=== PATIENT | male | born 1975 | race Caucasian/White ===

== ENCOUNTER → 2021-04-28 10:01 | Outpatient (CLI) | payer OTHER, SELFPAY ==
--- NOTE | ~2021-04-28 | US_ITS ---
EXAMINATION: US scrotum doppler DATE: 04/28/2021 10:48 INDICATION: Testicular lump TECHNIQUE: Testicular sonogram utilizing grayscale and Doppler COMPARISON: None. FINDINGS: The right testis measures 4.6 x 2.5 x 3.3 cm. The left testis measures 4.3 x 2.6 x 3.0 cm. Symmetric normal grayscale appearance to both testes. There is approximately 1 mm hyperechoic likely shadowing testicular microlith at the posterior left testis. There is normal vascular flow to both testes. Ther e are couple small shadowing calcifications within an 8 x 4 x 3 mm epididymal appendix arising from t he right epididymal head. The right epididymis is otherwise normal with normal vascular flow. The lef t epididymis is normal with normal vascular flow. Small bilateral hydroceles. Mild right varicocele w ith mildly dilated vessels measuring up to 3 mm diameter. IMPRESSION: 1. Palpable abnormality of concern corresponds to a small right epididymal appendix. 2. Small bilateral hydroceles. 3. Mild left varicocele. Reviewed, dictated and finalized at location A. IMPRESSION: 1. Palpable abnormality of concern corresponds to a small right epididymal hellen endix. 2. Small bilateral hydroceles. 3. Mild left varicocele.
== END ==
PROVIDERS: Visit Provider Nurse Practitioner
DX: N50.89 Other specified disorders of the male genital organs (principal); N43.3 Hydrocele, unspecified; I86.1 Scrotal varices
CPT/HCPCS: 76870; 93976

== ENCOUNTER 2021-06-20 07:42 | Outpatient (RCR) | payer OTHER, SELFPAY ==
[2021-06-20 07:42] VITALS: BP 131/85; PULSE 94; RESP 20; TEMP 36.5; O2SAT 98
[2021-06-20] MEDS: FAMOTIDINE 20 MG TABLET PO (07:45)
[2021-06-20] MEDS: ACETAMINOPHEN 325 MG TABLET 650 MG PO (07:45)
[2021-06-20] MEDS: diphenhydrAMINE HCl CAP 25 MG CAPSULE PO (07:45)
[2021-06-20 09:09] VITALS: BP 124/74
--- NOTE | 2021-06-23 08:38 | PC.NURSE ---
Tried calling Mr Covington had to leave a message for him to return my call.
--- NOTE | 2021-06-23 08:44 | PC.NURSE ---
Mr Covington called back and stated he is feeling much better and has no questions at this time.
== END 2021-06-20 17:00 ==
LOC: AMCINF 07:42
PROVIDERS: PCP Family Medicine; Visit Provider Internal Medicine Hematology & Oncology
DX: U07.1 COVID-19 (principal); I10 Essential (primary) hypertension
CPT/HCPCS: A9270; M0245; Q0245

== ENCOUNTER 2022-03-30 11:06 | Outpatient (CLI) | payer OTHER, SELFPAY ==
--- NOTE | 2022-03-30 11:26 | ECG_ITS ---
Measurements Intervals [place] Rate: 54 P: 34 WA: 165 QRS: 37 QRSD: 92 T: 40 QT: 396 QTc: 376 Interpretive Statements SINUS BRADYCARDIA INCOMPLETE RIGHT BUNDLE BRANCH BLOCK BORDERLINE ECG NO PREVIOUS ECG AVAILABLE FOR COMPARISON Electronically Signed On 03-30-2022 13:53:25 CDT by Yosi Heller D.O.
== END 2022-03-30 11:07 | disposition home or self-care (01) ==
LOC: ANHIMG 11:15 → ANHCARD 11:46
PROVIDERS: PCP Family Medicine; Visit Provider Physician Assistant Medical
DX: R00.2 Palpitations (principal); R00.1 Bradycardia, unspecified; I45.10 Unspecified right bundle-branch block
CPT/HCPCS: 93005

== ENCOUNTER → 2022-09-04 10:53 | Outpatient (CLI) | payer OTHER, SELFPAY ==
--- NOTE | ~2022-09-04 | US_ITS ---
US scrotum doppler INDICATION: Right epididymal cysts. TECHNIQUE: Testicular sonogram utilizing grayscale and color Doppler FINDINGS: The testes are normal in size and appearance. No focal lesions are seen. The right testes measures 4.4 x 2.2 x 3.5 cm centimeters, and the left testis measures 2.9 x 2.2 x 3 cm cm. There is n ormal vascular flow to both testes. The right and left epididymides appear normal. There is no varicocele or hydrocele. IMPRESSION: 1. NORMAL TESTICULAR ULTRASOUND. Reviewed, dictated and finalized at location B. T MIXER
== END ==
PROVIDERS: PCP Family Medicine; Visit Provider Nurse Practitioner
DX: N50.3 Cyst of epididymis (principal)
CPT/HCPCS: 76870; 93976

== ENCOUNTER 2022-10-19 08:04 | Outpatient (CLI) | payer OTHER, SELFPAY | END 2022-10-19 08:05 | disposition home or self-care (01) | LOC: ANHSURGERY 08:08 | PROVIDERS: PCP Physician Assistant; Visit Provider Surgery | DX: Z01.812 Encounter for preprocedural laboratory examination (principal); K42.9 Umbilical hernia without obstruction or gangrene; K40.90 Unilateral inguinal hernia, without obstruction or gangrene, not specified as recurrent | CPT/HCPCS: 36415; 86850; 86900; 86901 ==

== ENCOUNTER 2022-10-20 00:37 | Day surgery (SDC) | payer OTHER, SELFPAY ==
[2022-10-13 13:39] VITALS: BMI 22.4
--- NOTE | 2022-10-13 13:48 | PC.NURSE ---
Addendum entered by Nova Westfall RN 10/13/22 14:05: Shower with Hibiclens (Chlorhexidine Gluconate 4%) morning of surgery. Original Note: Report to the Outpatient Waiting Room, entrance under the green pavilion located off [facility], at 0600 on 10/20/22 . Planned Procedure Time: 0730. Time changes happen often and if your time is changed the preop area will call you the afternoon before. - You and your visitor will be asked to self-screen and do not enter if you have any COVID symptoms. - Only one visitor is requested with a max of two and NO children visitors are allowed at this time. - The patient visitor may be requested to leave or wait in car when not with patient due to distancing restrictions. - A mask is optional within the hospital at this time. Patients may have clear liquids (water, carbonated beverages, clear teas, apple juice) until 3 hours prior to surgery with a maximum of 20 ounces. - No food from midnight until time of surgery. Take the following medications with a SIP of water the morning of surgery: AMLODIPINE DO NOT STOP ANY OF YOUR OTHER PRESCRIPTION MEDICATIONS PRIOR TO SURGERY ?EXCEPT THE FOLLOWING Medications to discontinue per physician N/A Date to take last dose N/A Please no make-up, nail north korean, hairspray, perfume, deodorant, or body powder the day of surgery. No jewelry (including any body piercings) or valuables the day of surgery, leave them at home. Please take a shower or bath the night before, or the morning of, surgery with an antibacterial soap. Wear comfortable, loose fitting clothing. - Jewelry must be removed prior to entering the operating room. Rings and piercings that are not removed may be cut off. - The hospital will not accept responsibility for valuables. - Please leave all valuables, including medications, at home the day of surgery. If you are going home after surgery, a licensed tow car driver must drive you home. - NO public transportation without another adult if you receive anesthesia. - We recommend that an adult stay with you for 24 hours following discharge. - We also recommend that you do not drive, make important decision, drink alcoholic beverages, or take any drugs that were not prescribed by your health care provider for at least 24 hours after your discharge time. Follow any additional instructions given to you from your surgeon. If you or anyone in your household have experienced Covid symptoms in the past week, please notify your surgeon or the nurse liaison at the phone number below for possible testing. Telephone instructions given to patient and asked if any additional questions and then verbalized understanding. Patient advised to call surgeon office or pre surgery nurse liaison [phone] if any additional questions.
[2022-10-20] VITALS (9 sets, daily range): BP systolic 116–133; BP diastolic 68–92; PULSE 69–87; RESP 10–16; TEMP 36.2–36.4; O2SAT 98–100
[2022-10-20] MEDS: ACETAMINOPHEN 500 MG TABLET 1000 MG PO (06:27)
[2022-10-20] MEDS: LACTATED RINGERS 1,000 ML 30 ML IV CONT ×2 (06:40→08:35)
[2022-10-20] MEDS: KETOROLAC 15 MG/ML VIAL (*BKC) IV PUSH (07:02)
--- NOTE | 2022-10-20 07:03 | WPDANESEPPF ---
Anes - Initial Pre Proc Eval Procedure: Operation Date: 10/20/22 07:30 Proposed Procedures p Laparoscopic Right Inguinal Hernia with Mesh, Davinci Assisted - Tex Ca DO s Open Umbilical Hernia Repair - Tex Ca DO Date/Time: 10/20/22 07:03 Surgeon: Tex Ca DO Pre Op Diagnosis: Rt Ing Hernia, umbilical hernia Patient Data Age: 47 Gender: M Height: 1.88 m Weight: 78.3 kg Last Vital Signs Temp 36.4 C L 10/20/22 06:43 Pulse 78 10/20/22 06:43 Resp 16 10/20/22 06:43 BP 133/92 H 10/20/22 06:43 Pulse Ox 100 10/20/22 06:43 O2 Del Method Room Air 10/20/22 06:43 Allergies Allergy/AdvReac Type Severity Reaction Status Date / Time No Known Allergies Allergy Verified 10/13/22 13:38 Home Medications Medication Instructions Recorded Confirmed Type amlodipine 10 mg tablet See Rx Instructions .Route 04/09/22 10/20/22 Rx .COMPLEX #90 tabs lisinopril 10 mg tablet 10 mg PO DAILY #90 tabs 07/19/22 10/20/22 Rx Patient hx anesthesia problems: none Family hx anesthesia problems: none Results Review: All pre-operative results and documents have been reviewed as part of the pre-operative evaluation. [facility] Past Medical History Medical History Hypertension Surgical History Surgical History H/O hernia repair Left inguinal hernia repair Family History Family History Mother Cancer Unknown Heart disease Other Cerebrovascular accident Hypertension Social History Social History Smoking status: Former smoker Second hand tobacco smoke exposure: No Additional smoking assessment comments: late teens, early 20s-none since Alcohol intake: current Drinks per week: 5 Alcohol use details: beers Substance use: never Substance use type: does not use Lack of Transportation: No Lack of Food: Never True Current Housing: I Have Housing Concerned About Future Housing: No Difficulty Paying Gas/Electric Bills: No Difficulty Paying for Meds: No Currently Unemployed: No Education: Bachelor's Degree Difficulty w/ Childcare or Family Care: No Living arrangements: with family Spiritual care concerns: No Anes - Eval Final PreProcedure Day of Procedure 10/20/22 07:03 Patient weight: normal Heart: regular rate and rhythm Lungs: clear to auscultation Airway: Mallampati scale class II Neurological: alert and oriented Last oral intake: >/= 8 hours ASA classification: II Emergent: no Anesthetic plan: proceed Anesthesia type and monitoring: general ETT and standard monitoring Results Review: All pre-operative results and documents have been reviewed as part of the pre-operative evaluation. Informed Consent: The patient's anesthetic plan and its attendant risks and benefits were discussed with the patient/family/POA. Questions were solicited and answers provided to the satisfaction of the patient/family/POA.
--- NOTE | 2022-10-20 07:14 | WPDHPUPDATE1 ---
History and Physical Update Update Date/Time: 10/20/22 07:14 History and Physical has been reviewed, including an updated exam of the patient. There are NO changes in the patient's condition. Risks, benefits, and alternatives have been discussed and questions answered. Patient agrees to proceed with procedure.
--- NOTE | 2022-10-20 07:14 | PM.IMHP ---
H&P: HPI History of Present Illness Date/Time: 10/20/22 07:14 Chief Complaint: right inguinal hernia, umbilical hernia Narrative: 47 yo man presents for RIH repair and umbilical hernia repair. He denies any changes since last seen in office. Review of Systems Review of Systems: All systems reviewed & are unremarkable except as noted in HPI and below Constitutional: Constitutional: Denies chills, Denies fever(s), Denies headache(s) and Denies weight loss Eyes: Eyes: Denies change in vision ENT: Denies dizziness, Denies headache(s), Denies neck mass and Denies throat swelling Cardiovascular: Cardiovascular: Denies chest pain, Denies lightheadedness and Denies dyspnea Respiratory: Respiratory: Denies cough, Denies dyspnea and Denies wheezing Gastrointestinal: Gastrointestinal: Denies abdominal pain, Denies change in bowel habits, Denies nausea and Denies vomiting Genitourinary: Genitourinary: Denies hematuria and Denies dysuria Musculoskeletal: Musculoskeletal: Reports as per HPI Integumentary/Breasts: Skin/Breast: Reports as per HPI Neurologic: Denies dizziness and Denies headache(s) Allergic/Immunologic: Allergic/Immunologic: Denies throat swelling and Denies wheezing PMFSH Past Medical History Medical History Hypertension Surgical History Surgical History H/O hernia repair Left inguinal hernia repair Family History Family History Mother Cancer Unknown Heart disease Other Cerebrovascular accident Hypertension Social History Social History Smoking status: Former smoker Second hand tobacco smoke exposure: No Additional smoking assessment comments: late teens, early 20s-none since Alcohol intake: current Drinks per week: 5 Alcohol use details: beers Substance use: never Substance use type: does not use Lack of Transportation: No Lack of Food: Never True Current Housing: I Have Housing Concerned About Future Housing: No Difficulty Paying Gas/Electric Bills: No Difficulty Paying for Meds: No Currently Unemployed: No Education: Bachelor's Degree Difficulty w/ Childcare or Family Care: No Living arrangements: with family Spiritual care concerns: No Meds Home Medications and Allergies Home Medications Medication Instructions Recorded Confirmed Type amlodipine 10 mg tablet See Rx Instructions .Route 04/09/22 10/20/22 Rx .COMPLEX #90 tabs lisinopril 10 mg tablet 10 mg PO DAILY #90 tabs 07/19/22 10/20/22 Rx Allergies Allergy/AdvReac Type Severity Reaction Status Date / Time No Known Allergies Allergy Verified 10/13/22 13:38 Vital Signs Vital Signs - 24 hr 10/20/22 06:43 Temperature 36.4 C L Pulse Rate 78 Respiratory Rate 16 Blood Pressure 133/92 H Pulse Oximetry 100 Oxygen Delivery Room Air Exam Const: General: no acute distress and alert Orientation/consciousness: patient oriented x3 HENMT: Head: normocephalic and atraumatic Ears: hearing grossly normal bilaterally Face/Nose/Sinus: Normal nares present Mouth: Yes Normal oral and palatal mucosa present Eyes: Periorbital: periorbital findings normal Sclera: sclerae normal EOM: EOMs intact bilaterally Neck: Neck: normal visual inspection, no lymphadenopathy and trachea midline Chest: Chest palpation & inspection: normal inspection of the chest Resp: Effort & Inspection: normal respiratory effort Auscultation: clear to auscultation bilaterally Cardio: Jugular venous distension: no JVD Rate: regular rate Rhythm: regular rhythm Heart sounds: S1 normal heart sound present and S2 normal heart sound present Peripheral pulses: Peripheral pulses 2+ throughout GI: Inspection: normal to inspection GI Palp: Yes Soft to palpation, No Tenderness to palpation
[2022-10-20] MEDS: ceFAZolin 2 GM/D5W 50 ML 2 GM/50 ML BAG IVPB (07:23)
[2022-10-20] MEDS: BUPIVACAINE/EPINEPHRINE 0.5% 50 ML VIAL 30 ML INFILTRATE (07:58)
--- NOTE | 2022-10-20 08:36 | W.PM.PROC2 ---
Procedure Note - Detailed Date of Procedure 10/20/22 Pre-op Diagnosis Rt Ing Hernia, umbilical hernia Post-op Diagnosis Same (1cm Umbilical hernia) Procedure Performed 1. Laparoscopic right inguinal hernia repair with mesh, da Bruce assisted 2. 1cm Umbilical hernia repair Surgeon Tex Ca DO Anesthesia General and Local (0.5% bupivacaine with epinephrine) Indications This is a 47-year-old man who presents for right inguinal hernia repair and umbilical hernia repair. He was experiencing some right groin pain a couple months ago after coughing a lot. On exam he was found to have a reducible right inguinal hernia and a small umbilical hernia. His umbilical hernia was overall asymptomatic. Discussions were made with the patient about treatment options and decision was made to proceed with robotic assisted laparoscopic right inguinal hernia repair with mesh and open umbilical hernia repair. Findings Laparoscopic right inguinal hernia repair was performed. The patient was found to have a small direct inguinal hernia. A robotic transabdominal preperitoneal approach was utilized for repair. Once a wide enough preperitoneal pocket was created and the hernia sac was reduced, I then placed a large right Bard 3DMax mid mesh. The mesh was placed overlying the entire right myopectineal orifice. No specimens were obtained for pathology. At the conclusion of the laparoscopic repair, I then extended the umbilical incision and repaired the umbilical hernia with 0 Ethibond [id number] sutures. Description of Procedure Procedure as well as risks, benefits, and alternatives were discussed with the patient. Written consent was obtained and placed in chart prior to procedure. Patient was brought back to surgical suite. He was placed supine on operating table. Time-out was done to confirm patient and procedure. He was then intubated by Anesthesia Department. His abdomen was prepped and draped in sterile fashion using chlorhexidine prep. 0.5% bupivacaine with epinephrine was infiltrated at each location for incision. A 12 millimeter transverse incision was made just superior to the umbilicus using a 15 blade scalpel. Blunt dissection was carried out down to the linea alba. A vertical incision was made at the linea alba using a 15 blade scalpel. The peritoneum was then bluntly entered. A 12 millimeter trocar was inserted and carbon dioxide insufflation was used to create a pneumoperitoneum. A camera was inserted and the abdominal cavity was inspected. The patient was placed in slight Trendelenburg position. An 8 millimeter incision was made on the right lateral abdomen and an 8 millimeter trocar was inserted under direct visualization. Another 8 millimeter incision was made in the left lateral abdomen and an 8 millimeter trocar was inserted under direct visualization. The robotic arms were brought up to the patient's bedside and secured to the ports. The camera and instruments were inserted. I then moved over to the robotic console and took control of the camera and instruments. After careful inspection of the abdominal cavity, I began scoring the peritoneum along the right lower quadrant using scissors with electrocautery. The preperitoneal plane was entered and this was carefully dissected caudally along the inferior epigastric vessels. Careful dissection with scissors with electrocautery and blunt dissection was used to continue this dissection. I dissected far enough laterally to allow for mesh placement, and also dissected medially to identify the pubic arch and Sidney's ligament. The hernia sac was identified and carefully dissected posteriorly. The cord contents were also identified and the peritoneum was carefully dissected far enough posteriorly to allow for mesh placement. Once an adequate pocket was created, I then placed the mesh within the preperitoneal pocket and carefully unfolded it. The mesh was centered on the hernia defect with adequ
--- NOTE | 2022-10-20 09:04 | SUR.PHASEI ---
0903: Simple mask removed.
[2022-10-20] MEDS: fentaNYL CITRATE INJ (*CRX) 100 MCG/2 ML VIAL 25 MCG IV PUSH ×2 (09:16→09:19)
[2022-10-20] MEDS: oxyCODONE HCL (*CRX) 5 MG TAB IR PO (10:02)
== END 2022-10-20 11:12 | disposition home or self-care (01) ==
PROVIDERS: PCP Physician Assistant; Visit Provider Surgery
PROC: 8E0Y4CZ Robotic Assisted Procedure of Lower Extremity, Percutaneous Endoscopic Approach (ICD-10-PCS; CPT 49650; principal; 2022-10-20 07:30)
PROC: (CPT 49650; 2022-10-20 07:30)
DX: K40.90 Unilateral inguinal hernia, without obstruction or gangrene, not specified as recurrent (principal); K42.9 Umbilical hernia without obstruction or gangrene; I10 Essential (primary) hypertension
CPT/HCPCS: 49650; S2900; 36415; 86850; 86900; 86901; A9270; C1781; J0690; J1885; J2250; J2405; J2704; J3010; J7120

== ENCOUNTER → 2022-11-24 09:55 | Outpatient (CLI) | payer OTHER, SELFPAY ==
--- NOTE | ~2022-11-24 | CT_ITS ---
Corrected Report See Bolded Text Request for correction to Clinical Indication from PT 11/25/2022 Mona This report was recreated on 11/25/2022. Original report was signed by Cyrus Rodriguez M.D. on 11/24/2022 10:51 CDT. Non-contrast CT scan of the Abdomen and Pelvis Clinical indication: Right testicular pain Technique: 2.5 mm axial scans were obtained through the abdomen and pelvis without intravenous or oral contrast. Dose reduction technique was used on this scan by utilizing automated exposure control and iterative reconstruction technique. The dose-length product (DLP) was 647.62 mGy-cm. Findings: Images through the lung bases reveal no abnormalities. There is no evidence of renal or ureteral calculi. The kidneys and the ureters are nondilated. The liver, spleen, pancreas, gallbladder, and adrenals appear normal. There is no aortic aneurysm. There is no evidence of bowel obstruction. Images through the pelvis were performed. There is no evidence of ascites or lymphadenopathy. Urinary bladder unremarkable. Prostate gland and seminal vesicles are unremarkable. Evidence of probable prior left inguinal herniorrhaphy. Impression: No acute abnormality seen. Probable prior left inguinal herniorrhaphy. Correlate with surgical history. No hernia seen currently. Reviewed, dictated and finalized at location . MTDD Impression: No acute abnormality seen. Probable prior left inguinal herniorrhaphy. Correlate with surgical history. No hernia seen currently.
== END ==
PROVIDERS: PCP Urology; Visit Provider Urology
DX: N50.811 Right testicular pain (principal); N50.812 Left testicular pain
CPT/HCPCS: 74176

== ENCOUNTER 2023-12-08 08:52 | Outpatient (NON) | payer OTHER, SELFPAY | END 2023-12-08 08:53 | disposition home or self-care (01) | LOC: ANHLAB 12-09 08:55 | PROVIDERS: PCP Family Medicine; Visit Provider Internal Medicine Gastroenterology | DX: Z12.11 Encounter for screening for malignant neoplasm of colon (principal); D12.3 Benign neoplasm of transverse colon; K63.5 Polyp of colon | CPT/HCPCS: 88305 ==

== ENCOUNTER 2023-12-08 09:06 | Day surgery (SDC) | payer OTHER, SELFPAY ==
[2023-11-22 10:33] VITALS: BMI 23.0
[2023-11-22 14:35] VITALS: BMI 22.6
--- NOTE | 2023-12-07 14:04 | P.PNAN_ITS ---
Anes - Initial Pre Proc Eval Procedure: Operation Date: 12/08/23 11:30 Proposed Procedures p Screening Colonoscopy - Rg Fleming MD Date/Time: 12/07/23 14:04 Surgeon: Rg Fleming MD Pre Op Diagnosis: Neoplasm Screening Patient Data Age: 48 Gender: M Height: 1.88 m Weight: 80 kg Allergies Allergy/AdvReac Type Severity Reaction Status Date / Time No Known Allergies Allergy Verified 12/08/23 10:29 Home Medications Medication Instructions Recorded Confirmed Type lisinopril 10 mg tablet 10 mg PO DAILY #90 tabs 04/08/23 12/08/23 Rx amlodipine 10 mg tablet See Rx Instructions .Route 10/28/23 12/08/23 Rx .COMPLEX #90 tabs Patient hx anesthesia problems: none Family hx anesthesia problems: none Results Review: All pre-operative results and documents have been reviewed as part of the pre- operative evaluation. [facility] Past Medical History Medical History Hypertension Surgical History Surgical History H/O hernia repair Left inguinal hernia repair H/O right inguinal hernia repair 10/20/22 Laparoscopic right inguinal hernia repair with mesh, da Bruce assisted 2. 1cm Umbilical hernia repair Family History Family History Mother Cancer Unknown Heart disease Other Cerebrovascular accident Hypertension Social History Social History Smoking status: Light tobacco smoker Tobacco type: cigars Second hand tobacco smoke exposure: No Additional smoking assessment comments: late teens, early 20s-none since Alcohol intake: current Drinks per week: 5 Alcohol use details: beers Substance use: never Substance use type: does not use Lack of Transportation: No Lack of Food: Never True Current Housing: I Have Housing Concerned About Future Housing: No Difficulty Paying Gas/Electric Bills: No Difficulty Paying for Meds: No Currently Unemployed: No Education: Bachelor's Degree Difficulty w/ Childcare or Family Care: No Living arrangements: with family Spiritual care concerns: No Anes - Eval Final PreProcedure Day of Procedure 12/07/23 14:04 Patient weight: normal Heart: regular rate and rhythm Lungs: clear to auscultation and normal air movement Airway: Mallampati scale class II Neurological: alert and oriented Last oral intake: >/= 8 hours ASA classification: II Emergent: no Anesthetic plan: proceed Anesthesia type and monitoring: general GIVS and standard monitoring Results Review: All pre-operative results and documents have been reviewed as part of the pre- operative evaluation. Informed Consent: The patient's anesthetic plan and its attendant risks and benefits were discussed with the patient/family/POA. Questions were solicited and answers provided to the satisfaction of the patient/family/POA.
[2023-12-08 10:34] VITALS: BMI 22.2
[2023-12-08 10:35] VITALS: BP 133/95; PULSE 74; RESP 16; TEMP 36.8; O2SAT 100
[2023-12-08] MEDS: LACTATED RINGERS 1,000 ML 150 ML IV CONT (10:44)
--- NOTE | 2023-12-08 10:49 | PM.HPGS ---
History of Present Illness History of Present Illness Consent: Risks, benefits, and alternatives have been discussed and questions answered. Patient agrees to proceed with procedure. Chief complaint: Neoplasm Screening Narrative: Elliot Covington is a 48 year old male presents for screening colonoscopy. Patient's current weight appetite and bowel movements are normal. Patient denies abdominal pain. Has had no bleeding. Family history reveals no first-degree relative with colon polyps. His father did have ulcerative colitis. Review of Systems Review of Systems: All systems reviewed & are unremarkable except as noted in HPI and below PMFSH Past Medical History Medical History Hypertension Surgical History Surgical History H/O hernia repair Left inguinal hernia repair H/O right inguinal hernia repair 10/20/22 Laparoscopic right inguinal hernia repair with mesh, da Bruce assisted 2. 1cm Umbilical hernia repair Family History Family History Mother Cancer Unknown Heart disease Other Cerebrovascular accident Hypertension Social History Social History Smoking status: Light tobacco smoker Tobacco type: cigars Second hand tobacco smoke exposure: No Additional smoking assessment comments: late teens, early 20s-none since Alcohol intake: current Drinks per week: 5 Alcohol use details: beers Substance use: never Substance use type: does not use Lack of Transportation: No Lack of Food: Never True Current Housing: I Have Housing Concerned About Future Housing: No Difficulty Paying Gas/Electric Bills: No Difficulty Paying for Meds: No Currently Unemployed: No Education: Bachelor's Degree Difficulty w/ Childcare or Family Care: No Living arrangements: with family Spiritual care concerns: No Meds Home Medications and Allergies Home Medications Medication Instructions Recorded Confirmed Type lisinopril 10 mg tablet 10 mg PO DAILY #90 tabs 04/08/23 12/08/23 Rx amlodipine 10 mg tablet See Rx Instructions .Route 10/28/23 12/08/23 Rx .COMPLEX #90 tabs Allergies Allergy/AdvReac Type Severity Reaction Status Date / Time No Known Allergies Allergy Verified 12/08/23 10:29 Vital Signs Vital Signs - 24 hr 12/08/23 10:35 Temperature 98.2 F Pulse Rate 74 Respiratory Rate 16 Blood Pressure 133/95 H Pulse Oximetry 100 Oxygen Delivery Room Air Exam Narrative: Buccal exam reveals patent be alert. Vital signs stable. HEENT exam is unremarkable. Patient is anicteric. Lungs are clear to auscultation and percussion. Heart is without murmur or extra sounds. Abdomen bowel sounds are present soft nontender with no organomegaly. Digital external rectal exam normal. Assessment and Plan Assessment and plan (1) Screen for colon cancer: Code(s): Z12.11 - Encounter for screening for malignant neoplasm of colon Status: Acute Assessment and Plan: Patient presents for colon cancer screening colonoscopy. Further recommendations may be given after endoscopy.
[2023-12-08] MEDS: SIMETHICONE ORAL SUSPENSION 20 MG/0.3 ML 30 ML BOTTLE 0.6 ML IRRIGATION (11:37)
[2023-12-08 11:52] VITALS: BP 103/90; PULSE 80; RESP 16; O2SAT 98
[2023-12-08 12:02] VITALS: BP 118/91; PULSE 67; RESP 18; O2SAT 98
[2023-12-08 12:12] VITALS: BP 122/90; PULSE 57; RESP 18; O2SAT 100
--- NOTE | 2023-12-08 12:56 | WPDANESPN ---
Anes - Prog Note Post-Op Date/Time: 12/08/23 12:56 Cardiovascular status: normal Respiratory status: normal Airway patency: baseline Mental status: baseline Post-Op hydration status: normal Vital Signs: Last Vital Signs Temp 36.8 C 12/08/23 10:35 Pulse 57 L 12/08/23 12:12 Resp 18 12/08/23 12:12 BP 122/90 12/08/23 12:12 Pulse Ox 100 12/08/23 12:12 O2 Del Method Room Air 12/08/23 12:12 Pain Score (VAS): 0 I/O: Intake & Output 12/07/23 12/08/23 12/08/23 23:59 07:59 15:59 Intake Total 600 Balance 600 Post-procedural complaints: none Patient Feedback: Patient satisfied with anesthetic care. Other Findings: Patient vital signs back to baseline. Patient denies nausea and vomiting. Patient's pain under control. Patient OK for discharge.
== END 2023-12-08 12:19 | disposition home or self-care (01) ==
PROVIDERS: PCP Family Medicine; Visit Provider Internal Medicine Gastroenterology
PROC: 0DJD8ZZ Inspection of Lower Intestinal Tract, Via Natural or Artificial Opening Endoscopic (ICD-10-PCS; CPT 45378; principal; 2023-12-08 11:30)
DX: Z12.11 Encounter for screening for malignant neoplasm of colon (principal); D12.3 Benign neoplasm of transverse colon; D12.5 Benign neoplasm of sigmoid colon
CPT/HCPCS: 45385